=== PATIENT | female | born 1985 | race Two or more races ===

== ENCOUNTER 2024-09-09 04:21 | Day surgery (SDC) | payer OTHER ==
[2024-07-21 15:44] VITALS: BMI 32.8
[2024-09-09 13:06] VITALS: TEMP 98
[2024-09-09 15:11] VITALS: BP 102/62; PULSE 64; RESP 100
== END 2024-09-09 13:45 | disposition home or self-care (01) ==
LOC: JASU-ENDO 04:21
PROVIDERS: ATTEND Internal Medicine Gastroenterology
PROC: 0DB78ZX Excision of Stomach, Pylorus, Via Natural or Artificial Opening Endoscopic, Diagnostic (ICD-10-PCS; 2024-09-09)
PROC: 0DB68ZX Excision of Stomach, Via Natural or Artificial Opening Endoscopic, Diagnostic (ICD-10-PCS; 2024-09-09)
PROC: 0DB98ZX Excision of Duodenum, Via Natural or Artificial Opening Endoscopic, Diagnostic (ICD-10-PCS; principal; 2024-09-09 12:00)
DX: K29.50 Unspecified chronic gastritis without bleeding (principal); K31.7 Polyp of stomach and duodenum; Z98.84 Bariatric surgery status
CPT/HCPCS: 88305-TC; 88341-TC; 88342-TC